=== PATIENT | male | born 1990 | race Caucasian/White ===

== ENCOUNTER 2017-07-17 05:48 | Emergency (ER) | payer OTHER ==
[~2017-07-17] VITALS: Ht 177.8 cm; Wt 74.8 kg
[~2017-07-17 05:48] MED LIST: NOHOMEMEDICATIONS; VIBRAMYCIN 100100 MG PO
[2017-07-17] MEDS ORDERED: HYDROCODONE-AP1 EAC6 PO (06:08)
[2017-07-17 06:25] VITALS: BP 122/68
== END 2017-07-17 06:26 | disposition home or self-care (01) ==
LOC: M.ERS 05:48
DX: T23.102A Burn of first degree of left hand, unspecified site, initial encounter (principal); T23.101A Burn of first degree of right hand, unspecified site, initial encounter; Z91.041 Radiographic dye allergy status; T31.0 Burns involving less than 10% of body surface; X08.8XXA Exposure to other specified smoke, fire and flames, initial encounter; Y93.89 Activity, other specified; Y92.89 Other specified places as the place of occurrence of the external cause; Y99.8 Other external cause status